=== PATIENT | male | born 1975 ===

== ENCOUNTER 2017-02-20 12:01 | Emergency (ER) | payer MEDICARE ==
[2017-02-20 12:01] VITALS: BMI 33.1
[2017-02-20 12:05] VITALS: BP 123/56; PULSE 90; RESP 17; TEMP 98.4; O2SAT 96
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
== END 2017-02-20 15:11 | disposition home or self-care (01) ==
LOC: SUPCPDRO 12:01 → H.ER 12:01
DX: F25.9 Schizoaffective disorder, unspecified (principal); F31.9 Bipolar disorder, unspecified; N18.9 Chronic kidney disease, unspecified

== ENCOUNTER 2017-05-01 20:30 | Emergency (ER) | payer MEDICARE ==
[2017-05-01 20:30] VITALS: BMI 33.1
[2017-05-01 20:56] VITALS: BP 125/90; PULSE 90; RESP 16; TEMP 99.5; O2SAT 100
--- NOTE | 2017-05-01 22:37 | ED PDOC ---
HPI: Abdomen Time Seen by Provider: 05/01/17 22:13 Chief Complaint (Nursing): Abdominal Pain Chief Complaint (Provider): Left Lower Quadrant Abdominal Pain History Per: Patient History/Exam Limitations: no limitations Onset/Duration Of Symptoms: Days (x2 days) Outside of [place] travel?: No Current Symptoms Are (Timing): Still Present Quality Of Discomfort: "Pain" Associated Symptoms: denies: Fever, Vomiting, Urinary Symptoms Alleviating Factors: None Additional Complaint(s): 42 year old male with a past medical history of schizoaffective disorder presents to the ED complaining of intermittent left lower quadrant abdominal pain that she has been experiencing for the past 3 months and had worsened over the past 2 days. The patient states that the pain initially started when he had diarrhea 3 months ago for which he took imodium which improved his symptoms but he still experienced intermittent pain. Denies fever, vomiting, hematochezia, urinary symptoms. Past Medical History Reviewed: Historical Data, Nursing Documentation, Vital Signs Vital Signs: Last Vital Signs Temp 99.5 F 05/01/17 20:45 Pulse 90 05/01/17 20:45 Resp 16 05/01/17 20:45 BP 125/90 05/01/17 20:45 Pulse Ox 100 05/01/17 22:41 - Medical History PMH: Bipolar Disorder, Depression, Schizophrenia Denies: Diabetes, Hepatitis, HIV, HTN (not on any anti-hypertensive), Chronic Kidney Disease, Seizures, Sexually Transmitted Disease - Surgical History Surgical History: No Surg Hx - Family History Family History: States: Unknown Family Hx - Immunization History Hx Tetanus Toxoid Vaccination: No Hx Influenza Vaccination: No - Home Medications Home Medications: Ambulatory Orders Medication Instructions Recorded Divalproex [Depakote ER(ONCE 500 mg PO DAILY 06/10/15 DAILY)] QUEtiapine [SEROquel] 100 mg PO DAILY 06/10/15 Butenafine HCl [Lotrimin Ultra] 0.5 gm TP BID #30 cream..g. 02/20/17 - Allergies Allergies/Adverse Reactions: Allergies Allergy/AdvReac Type Severity Reaction Status Date / Time No Known Allergies Allergy Verified 05/01/17 20:42 Review of Systems ROS Statement: Except As Marked, All Systems Reviewed And Found Negative Constitutional: Negative for: Fever Gastrointestinal: Positive for: Abdominal Pain (LLQ). Negative for: Vomiting, Hematochezia Physical Exam - Reviewed Nursing Documentation Reviewed: Yes Vital Signs Reviewed: Yes - Physical Exam Appears: Positive for: Non-toxic, No Acute Distress Head Exam: Positive for: ATRAUMATIC, NORMAL INSPECTION, NORMOCEPHALIC Skin: Positive for: Normal Color, Warm. Negative for: Rash Eye Exam: Positive for: Normal appearance, EOMI, PERRL ENT: Positive for: Normal ENT Inspection. Negative for: Tonsillar Exudate, Tonsillar Swelling Neck: Positive for: Normal, Painless ROM, Supple Cardiovascular/Chest: Positive for: Regular Rate, Rhythm, Chest Non Tender. Negative for: Tachycardia Respiratory: Positive for: Normal Breath Sounds. Negative for: Wheezing, Respiratory Distress Gastrointestinal/Abdominal: Positive for: Bowel Sounds, Soft, Tenderness (? Tenderness solicited to palpation to llq ). Negative for: Guarding, Rebound Back: Positive for: Normal Inspection. Negative for: L CVA Tenderness, R CVA Tenderness Extremity: Positive for: Normal ROM. Negative for: Tenderness, Deformity, Swelling Neurologic/Psych: Positive for: Alert, Oriented, Gait - Laboratory Results Result Diagrams: 05/01/17 23:01 05/01/17 23:01 - ECG O2 Sat by Pulse Oximetry: 100 (RA) Pulse Ox Interpretation: Normal Medical Decision Making Medical Decision Makin Initial Impression 42 y/o male presenting with left lower quadrant abdominal pain Initial Plan: * CT Abd&Pelv w/o PO or IV Contrast * CMP * Udip * CBC * Reevaluation Documented by Renuka Huddleston acting as a scribe for Flo Coelho MD. All medical record entries made by the Scribe were at my direction and personally dictated by me. I have reviewed the chart and agree that the record accurately reflects my personal performance of the history, physical exam, medical decision making, and the department course for this patient. I have also personally directed, reviewed, and agree with the discharge instructions and disposition. Disposition - Clinical Impression Clinical Impression: Abdominal pain - Patient ED Disposition Is Patient to be Admitted: Transfer of Care - Disposition Disposition: Transfer of Care Disposition Time: 23:58 Condition: FAIR Forms: [employer] (Nepali) Patient Signed Over To: Delmer Bethea
[2017-05-01 23:05] LABS: BASO # 0.1 K/uL (0.0-0.2); BASO % 0.8 % (0.0-2.0); EOS # 0.4 K/uL (0.0-0.7); EOS % 3.4 % (0.0-4.0); LYMPH # 3.3 K/uL (1.0-4.3); LYMPH % 29.8 % (20.0-40.0); MEAN CELL VOLUME 87.3 fl (80.0-94.0); MEAN CORPUSCULAR HEMOGLOBIN 29.3 pg (27.0-31.0); MEAN CORPUSCULAR HGB CONC 33.6 g/dL (33.0-37.0); MONO # 1.2 K/uL (0.0-0.8); MONO % 10.9 % (0.0-10.0); NEUT # 6.2 K/uL (1.8-7.0); NEUT % 55.1 % (50.0-75.0); NRBC % 0.1 % (0.0-0.0); RBC 4.78 Mil/uL (4.40-5.90); RED CELL DISTRIBUTION WIDTH 13.5 % (11.5-14.5); WHITE BLOOD COUNT 11.2 K/uL (4.8-10.8)
[2017-05-01 23:25] LABS: ALB/GLOB RATIO 1.1 (1.0-2.1); ALBUMIN 3.8 g/dL (3.5-5.0); ALT/SGPT 37 U/L (21-72); AST/SGOT 29 U/L (17-59); BLOOD UREA NITROGEN 13 mg/dl (9-20); GFR AFRICAN-AMERICAN > 60; GFR NON-AFRICAN AMERICAN > 60
--- NOTE | 2017-05-02 00:35 | ED PDOC ---
- Laboratory Results Result Diagrams: 05/01/17 23:01 05/01/17 23:01 - ECG O2 Sat by Pulse Oximetry: 100 (RA) Medical Decision Making Medical Decision Making: Time: 00:00 Patient is signed over to me by Dr. Coelho pending Abdomen & Pelvis CT Time: 01:05 CT Abd & Pelvis FINDINGS: Lower thorax: No acute findings. ABDOMEN: Liver: Unremarkable. Gallbladder and bile ducts: Unremarkable. No calcified stones. No ductal dilation. Pancreas: Unremarkable. No ductal dilation. Spleen: Unremarkable. No splenomegaly. Adrenals: Unremarkable. No mass. Kidneys and ureters: Unremarkable. No obstructing or nonobstructing stones. No hydronephrosis. Stomach and bowel: Unremarkable. No obstruction. No mucosal thickening. Appendix: No findings to suggest acute appendicitis. PELVIS: Bladder: Unremarkable. No stones. Reproductive: Unremarkable as visualized. ABDOMEN and PELVIS: Intraperitoneal space: Unremarkable. No free air. No significant fluid collection. Bones/joints: No acute fracture. No dislocation. Soft tissues: Unremarkable. Vasculature: Unremarkable. No abdominal aortic aneurysm. Lymph nodes: Unremarkable. No enlarged lymph nodes. IMPRESSION: No acute obstructive or inflammatory process in the abdomen or pelvis. Time: 01:55 Upon provider reevaluation patient is feeling better, is medically stable, and requires no further treatment in the ED at this time. Patient will be discharged home. Counseling was provided and all questions were answered regarding diagnosis.There is agreement to discharge plan. Return if symptoms persist or worsen. Clinical Impression: Abdominal pain Scribe Attestation: Documented by Navjot Gallego acting as a scribe for Delmer Bethea MD. MD Nolenibe Attestation: All medical record entries made by the Scribe were at my direction and personally dictated by me. I have reviewed the chart and agree that the record accurately reflects my personal performance of the history, physical exam, medical decision making, and the department course for this patient. I have also personally directed, reviewed, and agree with the discharge instructions and disposition. Disposition - Clinical Impression Clinical Impression: Abdominal pain - POA Present On Arrival: None - Disposition Referrals: [facility] [Outside] Disposition: Routine/Home Disposition Time: 01:55 Condition: GOOD Instructions: Abdominal Pain (ED)
--- NOTE | 2017-05-02 09:15 | CT ---
PROCEDURE: CT Abdomen and Pelvis without intravenous contrast HISTORY: r/o kidney stone COMPARISON: None. TECHNIQUE: Contiguous images were obtained from the domes of the diaphragms to the upper thighs without the administration of intravenous contrast. Oral contrast was not administered. Radiation dose: Total exam DLP = 1194.6 mGy-cm. This CT exam was performed using one or more of the following dose reduction techniques: Automated exposure control, adjustment of the mA and/or kV according to patient size, and/or use of iterative reconstruction technique. FINDINGS: LOWER THORAX: Unremarkable. LIVER: Hepatic steatosis. No gross lesion or ductal dilatation. GALLBLADDER AND BILE DUCTS: Unremarkable. PANCREAS: Unremarkable. No gross lesion or ductal dilatation. SPLEEN: Unremarkable. ADRENALS: Unremarkable. No mass. KIDNEYS AND URETERS: Unremarkable. No hydronephrosis. No solid mass. VASCULATURE: Unremarkable. No aortic aneurysm. BOWEL: Unremarkable. No obstruction. No gross mural thickening. APPENDIX: Unremarkable. Normal appendix. PERITONEUM: Unremarkable. No free fluid. No free air. LYMPH NODES: Unremarkable. No enlarged lymph nodes. BLADDER: Unremarkable. REPRODUCTIVE: Unremarkable. BONES: Nonspecific deformity of both iliac crests. No acute fracture. OTHER FINDINGS: None. IMPRESSION: No urolithiasis or evidence of recently passed genitourinary calculus. No acute abdominal pelvic pathology.
== END 2017-05-02 02:25 | disposition home or self-care (01) ==
LOC: H.ER 20:30
DX: R10.32 Left lower quadrant pain (principal); F20.9 Schizophrenia, unspecified; F31.9 Bipolar disorder, unspecified; N18.9 Chronic kidney disease, unspecified

== ENCOUNTER 2017-07-21 19:11 | Emergency (ER) | payer MEDICARE ==
[2017-07-21 19:12] VITALS: BMI 33.1
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
[2017-07-21 22:24] VITALS: BP 132/68; PULSE 78; RESP 18; TEMP 98.3; O2SAT 97
== END 2017-07-21 22:24 | disposition home or self-care (01) ==
LOC: H.ER 19:11
DX: S01.511A Laceration without foreign body of lip, initial encounter (principal); S09.90XA Unspecified injury of head, initial encounter; Y04.0XXA Assault by unarmed brawl or fight, initial encounter; Y92.89 Other specified places as the place of occurrence of the external cause; F17.200 Nicotine dependence, unspecified, uncomplicated; F20.9 Schizophrenia, unspecified; F31.9 Bipolar disorder, unspecified

== ENCOUNTER 2017-08-22 22:48 | Emergency (ER) | payer MEDICARE ==
[2017-08-22 22:49] VITALS: BMI 33.1
[2017-08-22] MEDS ORDERED: Sodium Chloride 0.9% 1,000 ML IV STA (23:27)
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
[2017-08-23 00:45] LABS: BASO % 0.4 % (0.0-2.0); EOS # 0.3 K/uL (0.0-0.7); EOS % 3.5 % (0.0-4.0); HEMOGLOBIN 13.9 g/dL (12.0-18.0); LYMPH # 2.1 K/uL (1.0-4.3); MEAN CORPUSCULAR HEMOGLOBIN 29.5 pg (27.0-31.0); MEAN CORPUSCULAR HGB CONC 33.5 g/dL (33.0-37.0); MEAN PLATELET VOLUME 8.6 fl (7.2-11.7); MONO # 1.1 K/uL (0.0-0.8); MONO % 12.6 % (0.0-10.0); NEUT # 5.5 K/uL (1.8-7.0); NEUT % 60.5 % (50.0-75.0); NRBC % 0.1 % (0.0-0.0); RBC 4.72 Mil/uL (4.40-5.90); RED CELL DISTRIBUTION WIDTH 13.3 % (11.5-14.5); WHITE BLOOD COUNT 9.1 K/uL (4.8-10.8)
[2017-08-23 00:53] LABS: ALBUMIN 3.8 g/dL (3.5-5.0); ALT/SGPT 59 U/L (21-72); AST/SGOT 33 U/L (17-59); BLOOD UREA NITROGEN 16 mg/dl (9-20); GFR AFRICAN-AMERICAN > 60; GFR NON-AFRICAN AMERICAN > 60
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
[2017-08-23 02:08] VITALS: BP 137/76; PULSE 82; RESP 14; TEMP 98.1; O2SAT 97
== END 2017-08-23 02:33 | disposition home or self-care (01) ==
LOC: H.ER 22:48
DX: R51 Headache (principal); R11.0 Nausea; F20.9 Schizophrenia, unspecified; F31.9 Bipolar disorder, unspecified
CPT/HCPCS: 70450; 80053; 85025; 96360; 99284; J7030

== ENCOUNTER 2018-04-27 02:42 | Emergency (ER) | payer MEDICARE ==
[2018-04-27 02:42] VITALS: BMI 33.1
[2018-04-27 02:55] VITALS: RESP 18
--- NOTE | 2018-04-27 04:51 | ED PDOC ---
HPI: Abdomen Time Seen by Provider: 04/27/18 02:52 Chief Complaint (Nursing): Abdominal Pain Chief Complaint (Provider): abdominal pain History Per: Patient History/Exam Limitations: no limitations Onset/Duration Of Symptoms: Days (years) Current Symptoms Are (Timing): Still Present Additional Complaint(s): 43 y/o male brought in by EMS (after being kicked out of alf) for evaluation of intermittent left lower abdominal pain for "years". Patient states he was evaluated here for same. Denies fever, nausea/vomiting, chest pain, shortness of breath, palpitations, changes in bowel movements, urinary symptoms. Past Medical History Reviewed: Historical Data, Nursing Documentation, Vital Signs Vital Signs: Last Vital Signs Temp 97.7 F 04/27/18 02:49 Pulse 86 04/27/18 02:49 Resp 18 04/27/18 02:49 BP 131/56 L 04/27/18 02:49 Pulse Ox 95 04/27/18 02:49 - Medical History PMH: Bipolar Disorder, Depression, Schizophrenia Denies: Diabetes, Hepatitis, HIV, HTN (not on any anti-hypertensive), Chronic Kidney Disease, Seizures, Sexually Transmitted Disease - Family History Family History: States: Unknown Family Hx - Immunization History Hx Tetanus Toxoid Vaccination: Yes Hx Influenza Vaccination: No - Home Medications Home Medications: Ambulatory Orders Medication Instructions Recorded Divalproex [Depakote ER(ONCE 500 mg PO DAILY 06/10/15 DAILY)] QUEtiapine [SEROquel] 100 mg PO DAILY 06/10/15 Butenafine HCl [Lotrimin Ultra] 0.5 gm TP BID #30 cream..g. 02/20/17 - Allergies Allergies/Adverse Reactions: Allergies Allergy/AdvReac Type Severity Reaction Status Date / Time No Known Allergies Allergy Verified 05/01/17 20:42 Review of Systems ROS Statement: Except As Marked, All Systems Reviewed And Found Negative Gastrointestinal: Positive for: Abdominal Pain Physical Exam - Reviewed Nursing Documentation Reviewed: Yes Vital Signs Reviewed: Yes - Physical Exam Appears: Positive for: Well, Non-toxic, No Acute Distress (sleeping) Head Exam: Positive for: ATRAUMATIC, NORMAL INSPECTION, NORMOCEPHALIC Skin: Positive for: Normal Color Eye Exam: Positive for: Normal appearance ENT: Positive for: Normal ENT Inspection Cardiovascular/Chest: Positive for: Regular Rate, Rhythm Respiratory: Positive for: Normal Breath Sounds Gastrointestinal/Abdominal: Positive for: Normal Exam, Bowel Sounds, Soft. Negative for: Tenderness Back: Positive for: Normal Inspection Extremity: Positive for: Normal ROM Neurologic/Psych: Positive for: Alert, Oriented (x3) - ECG O2 Sat by Pulse Oximetry: 95 - Progress ED Course And Treament: Abdomen soft, NT/ND. Vitals stable Patient tolerating PO in ED Patient requires no further intervention in the ED and is stable for discharge at this time Patient was advised to follow up with PMD for further evaluation Return precautions given Disposition - Clinical Impression Clinical Impression: Abdominal pain - Patient ED Disposition Is Patient to be Admitted: No Counseled Patient/Family Regarding: Diagnosis, Need For Followup - Disposition Referrals: [facility] [Outside] Disposition: Routine/Home Disposition Time: 04:52 Condition: IMPROVED Instructions: Acute Abdomen (Belly Pain), Adult (DC)
[2018-04-27 07:06] VITALS: BP 126/60; PULSE 91; TEMP 98.2; O2SAT 96
== END 2018-04-27 06:40 | disposition home or self-care (01) ==
LOC: H.ER 02:42
DX: R10.9 Unspecified abdominal pain (principal)